=== PATIENT | female | born 1970 | race Caucasian/White ===

== ENCOUNTER → 2017-06-26 | Outpatient (CLI) | payer BC ==
[2017-06-26 12:18] LABS: ALT/SGPT 64 U/L (12-78); BLOOD UREA NITROGEN 13 mg/dl (7-18); BUN/CREATININE RATIO 17.4 (10-20); CALCIUM 9.4 mg/dl (8.5-10.1); CARBON DIOXIDE 30 mmol/L (21-32); CHLORIDE 104 mmol/L (98-107); CHOLESTEROL 207 mg/dl (0-200); CREATININE 0.76 mg/dl (0.60-1.20); GLUCOSE 101 mg/dl (70-99); POTASSIUM 4.2 mmol/L (3.5-5.1); SODIUM 137 mmol/L (136-145)
[2017-06-26 12:21] LABS: ALKALINE PHOSPHATASE 81 U/L (45-117); AST/SGOT 43 U/L (15-37); CHOLESTEROL/HDL RATIO 4.8; HDL CHOLESTEROL 43 mg/dl; LDL CHOLESTEROL CALCULATED 146 mg/dl; TRIGLYCERIDES 90 mg/dl (0-150); VERY LOW DENSITY LIPOPROT CALC 18 mg/dl
[2017-06-26 12:27] LABS: ESTIMATED AVERAGE GLUCOSE 114 mg/dl; HA1C FLAG Normal (Normal)
== END | disposition home or self-care (01) ==
LOC: C.LABPBG 09:36
PROVIDERS: ATTEND Family Medicine
DX: Z13.220 Encounter for screening for lipoid disorders (principal); R74.8 Abnormal levels of other serum enzymes; R73.03 Prediabetes

== ENCOUNTER 2023-08-06 22:54 | Inpatient (IN) ==
[2023-08-06] MEDS ORDERED: SODIUM CHLORIDE 0.9% 1,000 ML IV SCH (23:30)
--- NOTE | 2023-08-06 23:48 | Emergency Department Note ---
Impression & Plan Generalized weakness, GREGG (acute kidney injury) ED Provider Note HISTORY OF PRESENT ILLNESS: Patient is a 53-year-old female presenting with generalized weakness and lethargy. Family states that the patient was diagnosed with a urinary tract infection 2 days ago. She started on cefdinir. She reports has been taking her antibiotic. Today she reportedly has been very weak and unable to get up on her own. She reportedly has been incontinent of urine multiple times today. Family reports she is much more confused than her normal baseline. No reported falls or head injuries. Patient denies any chest pain, shortness of breath or abdominal pain. She had multiple episodes of vomiting yesterday and today. She reports she did take some Zofran at home. Denies any anticoagulation use. ROS: as above PHYSICAL EXAM: Constitutional: Patient appears in no acute distress. HENT: Head: Normocephalic and atraumatic. Eyes: EOMI, PERRL Mouth/Throat: Mucous membranes moist. Neck: Trachea midline. Neck supple. Cardiovascular: RRR, No murmurs, rubs or gallops. Intact distal pulses. Pulmonary/Chest: No respiratory distress. Breath sounds clear and equal bilaterally. No wheezes or rales. Abdominal: Abdomen soft, no tenderness, rebound or guarding. Musculoskeletal: No edema, tenderness or deformity noted. Skin: Warm and dry. No rash, erythema, pallor or cyanosis Psychiatric: Appropriate mood and affect for situation. Neurological: Alert and keenly responsive. CN II-XII grossly intact, moving all extremities equally and fully. MDM: - Vitals signs showed hypertension and tachypnea. - History obtained via patient's family, given patient's reported confusion. Patient presents with generalized weakness and lethargy. Family further reports that the patient has been too weak to get up and get around today. She is normally ambulatory without any assistive devices. Reports that the patient was diagnosed with a UTI 2 days ago. She has been taking cefdinir and using Zofran for nausea, but she has had multiple episodes of vomiting. She denies any abdominal pain, chest pain or shortness of breath. - Chronic conditions affecting care: HLD; HTN; DM-2 - Differential diagnoses include, but are not limited to: Urinary tract infection; pneumonia; CVA; intracranial hemorrhage; ACS - Order placed for continuous cardiac monitoring. At this time, monitor showed rate of 80 bpm with normal sinus rhythm, per my interpretation. - External medical records reviewed. ER documentation and results from 2 days ago were reviewed. Patient was treated with cefdinir for a urinary tract infection. - EKG reviewed by myself showed normal sinus rhythm. Rate 76 bpm. QTc 454. No acute ischemic changes. - Laboratory workup interpreted by myself showed normal WBC; stable electrol ytes; acute kidney injury (Cr 1.7 - baseline around 0.7); hyperglycemia (glucose 180); normal troponin - UA negative for infection - CXR negative for pneumonia, per my interpretation - CT head wo contrast negative for acute intracranial pathology. - Patient given 2L NS in ER. - Biofire negative. -Patient is too weak to get up and get around for an ambulatory challenge. Will admit to the hospitalist service. - Discussion was had with social work therapist about patient's case and need for admission - Hospitalist consulted for admission - Patient admitted to [facility] hospitalist service for further evaluation and management. ASSESSMENT AND PLAN: Diagnosis: generalized weakness; GREGG Plan: admit Past Med/Surg History Medical History Carpal tunnel syndrome, bilateral Dyslipidemia Elevated liver enzymes GERD (gastroesophageal reflux disease) HTN (hypertension) Kidney infection Trigger finger of right thumb Surgical History S/P carpal tunnel release (07/24/20) BOTH HANDS Status post section Family History Mother Diabetes Cirrhosis Father Diabetes Dyslipidemia Hypertension Grandfather (Paternal) Cancer Grandfather (Maternal) Cancer Denies family history of Ovarian cancer Prostate cancer Breast cancer Lung cancer Colorectal cancer Social History Smoking Status: Never smoker Tobacco Type: Cigarettes Age Started Using Tobacco: 23; Age Quit Using Tobacco: 31; Cigarettes Per Day: social smoker; Second Hand Exposure: No; Do You Dip or Chew Tobacco: No; Hx Alcohol Use: No Hx Substance Use: No Preferred Language: Bengali Communication Ability: Effective Visual Impairment: No Limitations Hearing Ability: Normal Central Sterile Technician Required: No Beliefs That Will Affect Care: None marital status: Current Living Situation: Spouse current occupational status: employed 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 Feels Safe at Home: Yes Childhood Exposure to Second-Hand Smoke: Yes Diet: regular Diet Comment: regular caffeine: Yes during the past year weight has: remained stable Dental Care, Regularly: Yes Physical Activity Frequency: Daily Physical Activity Frequency Comment: walking Seatbelt Use: always Sunscreen Use: No Allergies Allergies Allergy/AdvReac Type Severity Reaction Status Date / Time No Known Drug Allergies Allergy Verified 12/13/22 09:04 Home Meds Previous Rx's Medication Instructions Recorded furosemide 20 mg tablet 20 mg PO DAILY PRN Edema #30 tabs 10/25/21 betamethasone valerate 0.1 % lotion 1 applic topical BID PRN skin 12/13/22 irritation #60 mL cholecalciferol (vitamin D3) 1,250 50,000 unit PO .weekly 8 weeks #8 12/13/22 mcg (50,000 unit) capsule caps nystatin 100,000 unit/gram topical 1 applic topical TID PRN rash #30 12/13/22 cream grams nystatin 100,000 unit/gram topical 1 applic topical TID PRN rash #30 12/13/22 powder grams albuterol sulfate 90 mcg/actuation See Rx Instructions inhalation 01/06/23 aerosol inhaler (Ventolin HFA) .COMPLEX PRN shortness of breath or wheezing #18 grams doxycycline hyclate 100 mg tablet 100 mg PO BID 7 days #14 tabs 01/06/23 prednisone 20 mg tablet 40 mg PO DAILY 5 days #10 tabs 01/06/23 omeprazole 40 mg capsule,delayed 40 mg PO QPM #90 caps 04/19/23 release lisinopril 30 mg tablet 30 mg PO DAILY #30 tabs 06/13/23 metformin 500 mg tablet 500 mg PO .COMPLEX #60 tabs 06/13/23 pravastatin 10 mg tablet 10 mg PO HS #90 tabs 06/13/23 sertraline 50 mg tablet (Zoloft) See Rx Instructions PO DAILY #30 06/13/23 tabs cefdinir 300 mg capsule 300 mg PO BID 10 days #20 caps 08/04/23 Results & Data (ED) Vital Signs Vital Signs - 24 hr 08/06/23 23:05 08/06/23 23:05 08/06/23 23:08 Temperature 37.2 C Temperature Source Oral Pulse Rate 77 79 Pulse Rate from SpO2 Sensor Respiratory Rate 29 H Blood Pressure 151/82 H Blood Pressure Mean 105 Pulse Oximetry 93 Oxygen Delivery Method Room Air Room Air Sepsis Recent Fever Within 48 Hours No Sepsis New/Unexplained Change in Mental Status No Sepsis Action Taken by Nursing No Action Required 08/06/23 23:28 08/06/23 23:30 08/07/23 00:00 Temperature Temperature Source Pulse Rate 69 75 Pulse Rate from SpO2 Sensor 70 Respiratory Rate 31 H 32 H Blood Pressure 141/72 H 120/70 Blood Pressure Mean 95 86 Pulse Oximetry 95 94 Oxygen Delivery Method Sepsis Recent Fever Within 48 Hours Sepsis New/Unexplained Change in Mental Status Sepsis Action Taken by Nursing 08/07/23 00:30 Temperature Temperature Source Pulse Rate 73 Pulse Rate from SpO2 Sensor 73 Respiratory Rate 26 H Blood Pressure 131/76 Blood Pressure Mean 94 Pulse Oximetry 95 Oxygen Delivery Method Sepsis Recent Fever Within 48 Hours Sepsis New/Unexplained Change in Mental Status Sepsis Action Taken by Nursing Laboratory Data 08/06/23 23:25 08/06/23 23:25 Lab Results 08/06/23 08/06/23 08/06/23 Range/Units 23:25 23:25 23:25 WBC 9.08 (4.8-10.8) K/ul RBC 4.28 (4.20-5.40) M/uL Hgb 12.3 (12.0-16.0) g/dl Hct 37.5 (37.0-47.0) % MCV 87.6 (80.0-100.0) fL MCH 28.7 (25.0-34.0) pg MCHC 32.8 (32.0-36.0) g/dL RDW Std Deviation 49.1 H (36.4-46.3) fL RDW Coeff of Partha 15.3 H (11.5-14.5) % Plt Count 216 (130-400) K/uL MPV 10.0 (9.4-12.4) fL Immature Gran % (Auto) 0.7 % Neut % (Auto) 79.6 % Lymph % (Auto) 10.6 % [place] % (Auto) 7.9 % Eos % (Auto) 1.0 % Baso % (Auto) 0.2 % Neut # (Auto) 7.23 H (1.40-6.50) K/uL Lymph # (Auto) 0.96 L (1.20-3.40) K/uL [place] # (Auto) 0.72 H (0.11-0.59) K/uL Eos # (Auto) 0.09 (0.00-0.50) K/uL Baso # (Auto) 0.02 (0.00-0.20) K/uL Immature Gran # (Auto) 0.06 (0.01-0.20) K/uL Sodium 135 L (136-145) mmol/L Potassium 3.8 (3.5-5.1) mmol/L Chloride 105 (98-107) mmol/L Carbon Dioxide 23 (21-32) mmol/L Anion Gap 7 (3-11) BUN 34 H (6-23) mg/dl Creatinine 1.70 H (0.6-1.2) mg/dl Est Cr Clr Drug Dosing 52.9 ml/min Est GFR ( Amer) 39.5 ml/min Est GFR (Non-Af Amer) 34.1 ml/min BUN/Creatinine Ratio 20.0 (10-20) Glucose 180 H (70-99(Fasting)) mg/dl Lactate 1.0 (0.4-2.0) mmol/L Calcium 9.2 (8.6-10.3) mg/dl Magnesium 2.2 (1.7-2.4) mg/dl Total Bilirubin 0.5 (0.2-1.0) mg/dl AST 19 (13-39) U/L ALT 20 (7-52) U/L Alkaline Phosphatase 61 (34-104) U/L Troponin I High Sens 6.2 (0-14) pg/ml Total Protein 6.6 (6.0-8.3) gm/dl Albumin 3.7 (3.4-5.0) gm/dl Globulin 2.9 (2.5-4.0) gm/dl Albumin/Globulin Ratio 1.3 (0.9-2) TSH 2.389 (0.300-4.500) uIu/ml Urine Color Urine Appearance (Clear) Urine pH (4.5-7.5) Ur Specific [place] (1.000-1.030) Urine Protein (Negative) Urine Glucose (UA) (Negative) Urine Ketones (Negative) Urine Blood (Negative) Urine Nitrite (Negative) Urine Bilirubin (Negative) Urine Urobilinogen (Negative) Ur Leukocyte Esterase (Negative) Urine WBC (Auto) (0-5) /hpf Urine RBC (Auto) (0-4) /hpf U Hyaline Cast (Auto) (0-5) /lpf U Epithel Cells (Auto) (0-5) /lpf Urine Bacteria (Auto) (Negative) Adenovirus (PCR) (NotDetected) B. pertussis DNA (PCR) (NotDetected) B.parapertussis DNA PCR (NotDetected) C. pneumoniae DNA (PCR) (NotDetected) Coronavirus OC43 (PCR) (NotDetected) Coronavirus HKU1 (PCR) (NotDetected) Coronavirus 229E (PCR) (NotDetected) SARS-CoV-2 (PCR) (NotDetected) Coronavirus NL63 (PCR) (NotDetected) Human Metapneumovir PCR (NotDetected) Influenza Type A (PCR) (NotDetected) Influenza Type B (PCR) (NotDetected) M. pneumoniae (PCR) (NotDetected) Parainfluenza 1 (PCR) (NotDetected) Parainfluenza 2 (PCR) (NotDetected) Parainfluenza 3 (PCR) (NotDetected) Parainfluenza 4 (PCR) (NotDetected) RSV (PCR) (NotDetected) Entero/Rhino (PCR) (NotDetected) 08/06/23 08/06/23 Range/Units 23:25 23:30 WBC (4.8-10.8) K/ul RBC (4.20-5.40) M/uL Hgb (12.0-16.0) g/dl Hct (37.0-47.0) % MCV (80.0-100.0) fL MCH (25.0-34.0) pg MCHC (32.0-36.0) g/dL RDW Std Deviation (36.4-46.3) fL RDW Coeff of Partha (11.5-14.5) % Plt Count (130-400) K/uL MPV (9.4-12.4) fL Immature Gran % (Auto) % Neut % (Auto) % Lymph % (Auto) % [place] % (Auto) % Eos % (Auto) % Baso % (Auto) % Neut # (Auto) (1.40-6.50) K/uL Lymph # (Auto) (1.20-3.40) K/uL [place] # (Auto) (0.11-0.59) K/uL Eos # (Auto) (0.00-0.50) K/uL Baso # (Auto) (0.00-0.20) K/uL Immature Gran # (Auto) (0.01-0.20) K/uL Sodium (136-145) mmol/L Potassium (3.5-5.1) mmol/L Chloride (98-107) mmol/L Carbon Dioxide (21-32) mmol/L Anion Gap (3-11) BUN (6-23) mg/dl Creatinine (0.6-1.2) mg/dl Est Cr Clr Drug Dosing ml/min Est GFR ( Amer) ml/min Est GFR (Non-Af Amer) ml/min BUN/Creatinine Ratio (10-20) Glucose (70-99(Fasting)) mg/dl Lactate (0.4-2.0) mmol/L Calcium (8.6-10.3) mg/dl Magnesium (1.7-2.4) mg/dl Total Bilirubin (0.2-1.0) mg/dl AST (13-39) U/L ALT (7-52) U/L Alkaline Phosphatase (34-104) U/L Troponin I High Sens (0-14) pg/ml Total Protein (6.0-8.3) gm/dl Albumin (3.4-5.0) gm/dl Globulin (2.5-4.0) gm/dl Albumin/Globulin Ratio (0.9-2) TSH (0.300-4.500) uIu/ml Urine Color [place] Urine Appearance Clear (Clear) Urine pH 5.5 (4.5-7.5) Ur Specific [place] 1.015 (1.000-1.030) Urine Protein Trace H (Negative) Urine Glucose (UA) Negative (Negative) Urine Ketones Negative (Negative) Urine Blood 3+ H (Negative) Urine Nitrite Negative (Negative) Urine Bilirubin Negative (Negative) Urine Urobilinogen Negative (Negative) Ur Leukocyte Esterase Trace H (Negative) Urine WBC (Auto) 1-5 (0-5) /hpf Urine RBC (Auto) >30 H (0-4) /hpf U Hyaline Cast (Auto) 0 (0-5) /lpf U Epithel Cells (Auto) 0-5 (0-5) /lpf Urine Bacteria (Auto) Negative (Negative) Adenovirus (PCR) Not Detected (NotDetected) B. pertussis DNA (PCR) Not Detected (NotDetected) B.parapertussis DNA PCR Not Detected (NotDetected) C. pneumoniae DNA (PCR) Not Detected (NotDetected) Coronavirus OC43 (PCR) Not Detected (NotDetected) Coronavirus HKU1 (PCR) Not Detected (NotDetected) Coronavirus 229E (PCR) Not Detected (NotDetected) SARS-CoV-2 (PCR) Not Detected (NotDetected) Coronavirus NL63 (PCR) Not Detected (NotDetected) Human Metapneumovir PCR Not Detected (NotDetected) Influenza Type A (PCR) Not Detected (NotDetected) Influenza Type B (PCR) Not Detected (NotDetected) M. pneumoniae (PCR) Not Detected (NotDetected) Parainfluenza 1 (PCR) Not Detected (NotDetected) Parainfluenza 2 (PCR) Not Detected (NotDetected) Parainfluenza 3 (PCR) Not Detected (NotDetected) Parainfluenza 4 (PCR) Not Detected (NotDetected) RSV (PCR) Not Detected (NotDetected) Entero/Rhino (PCR) Not Detected (NotDetected) Administered Medications Sodium Chloride (Nss) 1,000 mls @ 999 mls/hr IV .Q1H1M ONE Stop: 08/07/23 01:18 Last Admin: 08/07/23 00:27 Dose: 999 mls/hr Documented By: EMB Imaging Data Radiologist's Impression: Head CT 08/06/23 23:46 Exam(s): CT HEAD Without Contrast EXAM: CT Head Without Intravenous Contrast CLINICAL HISTORY: Reason for exam: confusion. TECHNIQUE: Axial computed tomography images of the head/brain without intravenous contrast. Automated exposure control was utilized for the study. A dose lowering technique was utilized adhering to the principles of ALARA. COMPARISON: No relevant prior studies available. FINDINGS: Artifacts: Some motion artifact. Brain: Unremarkable. No hemorrhage. No significant white matter disease. No edema. Ventricles: Unremarkable. No ventriculomegaly. Bones/joints: Unremarkable. No acute fracture. Soft tissues: Unremarkable. Sinuses: Unremarkable as visualized. No acute sinusitis. Mastoid air cells: Unremarkable as visualized. No mastoid effusion. IMPRESSION: No acute findings in the head/brain. Electronically signed by: Maggie Douglas M.D. 08/07/23 01:05 AM Discharge Plan Visit Data Chief Complaint: Lethargic Stated Complaint: LETHARGIC ED Provider: Kimberli Hughes Discharge Problem: Generalized weakness, GREGG (acute kidney injury) Forms Stand Alone Forms: Wave - Private Location App [facility] [employer] Prescriptions Prescriptions: No Action cholecalciferol (vitamin D3) 1,250 mcg (50,000 unit) capsule 50,000 unit PO .weekly 56 Days Qty: 8 0RF omeprazole 40 mg capsule,delayed release(DR/EC) 40 mg PO QPM Qty: 90 1RF pravastatin 10 mg tablet 10 mg PO HS Qty: 90 1RF lisinopril 30 mg tablet 30 mg PO DAILY Qty: 30 2RF metformin 500 mg tablet 500 mg PO .COMPLEX Qty: 60 2RF Rx Instructions: 500 mg orally; 1 tablet daily x1 week, then increase to 1 tablet BID sertraline [Zoloft] 50 mg tablet See Rx Instructions PO DAILY Qty: 30 2RF Rx Instructions: orally daily; 1/2 tablet daily x6 days, then increase to 1 tablet daily nystatin 100,000 unit/gram cream 1 applic topical TID PRN (Reason: rash) Qty: 30 0RF nystatin 100,000 unit/gram powder 1 applic topical TID PRN (Reason: rash) Qty: 30 0RF betamethasone valerate 0.1 % lotion 1 applic topical BID PRN (Reason: skin irritation) Qty: 60 0RF furosemide 20 mg tablet 20 mg PO DAILY PRN (Reason: Edema) Qty: 30 5RF prednisone 20 mg tablet 40 mg PO DAILY 5 Days Qty: 10 0RF albuterol sulfate [Ventolin HFA] 90 mcg/actuation HFA aerosol inhaler See Rx Instructions inhalation .COMPLEX PRN (Reason: shortness of breath or wheezing) Qty: 18 0RF Rx Instructions: 1-2 puffs inhalation 1 puff INH every 4-6 hrs; PRN; doxycycline hyclate 100 mg tablet 100 mg PO BID 7 Days Qty: 14 0RF cefdinir 300 mg capsule 300 mg PO BID 10 Days Qty: 20 0RF Referrals Referrals: Ruthie Joe DO [Primary Care Provider] -
[2023-08-06 23:52] LABS: Appearance Urine Clear (Clear); Bacteria Urine Automated Negative (Negative); Bilirubin Urine Negative (Negative); Blood Urine 3+ (Negative); Cast Urine Automated 0 /lpf (0-5); Color Urine Orange; Epithelial Cell Urine Auto 0-5 /lpf (0-5); Glucose Urine UA Negative (Negative); Ketones Urine Negative (Negative); Leukocyte Esterase Urine Trace (Negative); Nitrite Urine Negative (Negative); Protein Urine Trace (Negative); RBC Urine Automated >30 /hpf (0-4); Specific Gravity Urine 1.015 (1.000-1.030); Urobilinogen Urine Negative (Negative); pH Urine 5.5 (4.5-7.5)
[2023-08-06 23:54] LABS: Basophils # (auto) 0.02 K/uL (0.00-0.20); Basophils % (auto) 0.2 %; Eosinophils # (auto) 0.09 K/uL (0.00-0.50); Hematocrit (blood only) 37.5 % (37.0-47.0); Hemoglobin 12.3 g/dl (12.0-16.0); Immature Granulocytes # (auto) 0.06 K/uL (0.01-0.20); Immature Granulocytes % (auto) 0.7 %; Lymphocytes # (auto) 0.96 K/uL (1.20-3.40); Lymphocytes % (auto) 10.6 %; Mean Corpuscular Hemoglobin 28.7 pg (25.0-34.0); Mean Corpuscular Hgb Conc 32.8 g/dL (32.0-36.0); Mean Corpuscular Volume 87.6 fL (80.0-100.0); Monocytes # (auto) 0.72 K/uL (0.11-0.59); Monocytes % (auto) 7.9 %; Neutrophils # (auto) 7.23 K/uL (1.40-6.50); Neutrophils % (auto) 79.6 %; Platelet Count 216 K/uL (130-400); RDW Coefficient of Variation 15.3 % (11.5-14.5); RDW Standard Deviation 49.1 fL (36.4-46.3); Red Blood Count 4.28 M/uL (4.20-5.40); White Blood Count 9.08 K/ul (4.8-10.8)
[2023-08-07 00:16] LABS: Albumin Globulin Ratio 1.3 (0.9-2); Albumin Level 3.7 gm/dl (3.4-5.0); Bilirubin,Total 0.5 mg/dl (0.2-1.0); Calcium 9.2 mg/dl (8.6-10.3); Creatinine Clr Calc Pharmacy 52.9 ml/min; Est GFR (African American) 39.5 ml/min; Est GFR (Non-African American) 34.1 ml/min; Globulin 2.9 gm/dl (2.5-4.0); Magnesium 2.2 mg/dl (1.7-2.4); Potassium 3.8 mmol/L (3.5-5.1); Total Protein 6.6 gm/dl (6.0-8.3); Troponin I High Sensitivity 6.2 pg/ml (0-14)
[2023-08-07] MEDS ORDERED: SODIUM CHLORIDE 0.9% 1,000 ML IV ONE (00:18)
[2023-08-07 00:33] LABS: Thyroid Stimulating Hormone 2.389 uIu/ml (0.300-4.500)
[2023-08-07 00:47] LABS: Adenovirus PCR Not Detected (NotDetected); Bordetella parapertussis PCR Not Detected (NotDetected); Bordetella pertussis PCR Not Detected (NotDetected); Chlamydia pneumoniae PCR Not Detected (NotDetected); Coronavirus 229E PCR Not Detected (NotDetected); Coronavirus CoV-2 (COVID19)PCR Not Detected (NotDetected); Coronavirus HKU1 PCR Not Detected (NotDetected); Coronavirus NL63 PCR Not Detected (NotDetected); Coronavirus OC43PCR Not Detected (NotDetected); Human Metapneumovirus PCR Not Detected (NotDetected); Influenza A PCR Not Detected (NotDetected); Influenza B PCR Not Detected (NotDetected); Mycoplasma pneumoniae PCR Not Detected (NotDetected); Parainfluenza Virus 1 PCR Not Detected (NotDetected); Parainfluenza Virus 2 PCR Not Detected (NotDetected); Parainfluenza Virus 3 PCR Not Detected (NotDetected); Parainfluenza Virus 4 PCR Not Detected (NotDetected); Respiratory Syncytial VirusPCR Not Detected (NotDetected); Rhinovirus/Enterovirus PCR Not Detected (NotDetected)
--- NOTE | 2023-08-07 01:06 | CT Scan Report ---
Exam(s): CT HEAD Without Contrast EXAM: CT Head Without Intravenous Contrast CLINICAL HISTORY: Reason for exam: confusion. TECHNIQUE: Axial computed tomography images of the head/brain without intravenous contrast. Automated exposure control was utilized for the study. A dose lowering technique was utilized adhering to the principles of ALARA. COMPARISON: No relevant prior studies available. FINDINGS: Artifacts: Some motion artifact. Brain: Unremarkable. No hemorrhage. No significant white matter disease. No edema. Ventricles: Unremarkable. No ventriculomegaly. Bones/joints: Unremarkable. No acute fracture. Soft tissues: Unremarkable. Sinuses: Unremarkable as visualized. No acute sinusitis. Mastoid air cells: Unremarkable as visualized. No mastoid effusion. IMPRESSION: No acute findings in the head/brain. Electronically signed by: Maggie Douglas M.D. 08/07/23 01:05 AM
--- NOTE | 2023-08-07 02:11 | History & Physical Report ---
Date of Service August 07, 2023 Assessment & Plan (1) Generalized weakness: Plan: 53yo female presents with several days of generalized weakness and fatigue, inability to ambulate. She was seen in the ER on 08/04/23 and thought to have a UTI - she was given a dose of IV Ceftriaxone and discharged home on Cefdinir. UA at that time likely reveals contamination rather than infection. Culture from 08/04 with mixed hanna. Weakness persists. Etiology unclear. Patient now with GREGG which is likely contributing to her weakness and fatigue as well. No obvious source of infection. No leukocytosis, lactate normal. TSH and electrolytes largely normal. -Admit to medical with telemetry -Follow cultures - blood and urine sent from ER -Check Lyme, Babesiosis and Anaplasmosis -Fall precautions -Will discontinue further antibiotics for now given negative urine culture (2) GREGG (acute kidney injury): Plan: Elevation of BUN and Cr at 34 and 1.7, respectively. Renal function previously normal with BUN of 14 and Cr of 0.67 on 08/04/23. Likely multifactorial - decreased oral intake with vomiting, medication effects - patient has been on Lisinopril and taking Advil. Possible AIN/ATN from Cephalosporins? UA at this time with hematuria, 3+ blood and >30RBCs. Mckeon catheter placed in the ER with gross hematuria with small clots present. Electrolytes and BMP otherwise acceptable. -Check urine Na and Cr for FeNA calculation -Check urine microscopy -Check CK total -Continue IVF resuscitation - LR at 125mL/hr x 2 additional liters -Strict I/Os -Avoid nephrotoxic agents - will hold Lisinopril -Renal dosing where needed (3) T2DM (type 2 diabetes mellitus): Plan: Chronic. Patient on Metformin. Last HgbA1C from 12/13/22=6.9 -Hold Metformin -ISS with goal inpatient blood sugar 110 - 140 -Check HgbA1C (4) Dyslipidemia: Plan: Chronic -Continue Pravastatin (5) HTN (hypertension): Plan: Chronic. Blood pressure acceptable at this time. -Hold Lisinopril -Monitor BP History of Present Illness Chief Complaint: lethargy and weakness Primary Care Provider: DO Анна Cliftonlyssa Harrison is a 53yo female presenting from home with three days of weakness and lethargy. Patient was seen in the ER on 08/04/23 with complaint of right ear pain as well as lethargy, difficulty ambulating and fever measured at 39.2. Also complaining of increased frequency of urination at that time. Patient was treated with IV fluids, Tylenol and Ceftriaxone for presumed UTI. She improved clinically while in the ER and was discharged home with a prescription for Cefdinir and Zofran PRN. Family reports that she has not been improving since returning home. She continues to be lethargic, generally weak with difficulty with ambulating. She is being carried to the bathroom by her family. She has been drinking fluids but not eating - has some nausea with vomiting as well. Has been taking Tylenol and Ibuprofen alternating for her symptoms. In the ER she is afebrile, HD stable Somnolent Witnessed snoring and brief apneic episode in the room ER Course: NSS x 2L Allergies Allergy/AdvReac Type Severity Reaction Status Date / Time No Known Drug Allergies Allergy Verified 12/13/22 09:04 Home Medications Medication Instructions Recorded Confirmed Type furosemide 20 mg tablet 20 mg PO DAILY PRN Edema #30 tabs 10/25/21 08/07/23 Rx betamethasone valerate 0.1 % lotion 1 applic topical BID PRN skin 12/13/22 12/13/22 Rx irritation #60 mL cholecalciferol (vitamin D3) 1,250 50,000 unit PO .weekly 8 weeks #8 12/13/22 08/07/23 Rx mcg (50,000 unit) capsule caps nystatin 100,000 unit/gram topical 1 applic topical TID PRN rash #30 12/13/22 12/13/22 Rx cream grams nystatin 100,000 unit/gram topical 1 applic topical TID PRN rash #30 12/13/22 12/13/22 Rx powder grams albuterol sulfate 90 mcg/actuation See Rx Instructions inhalation 01/06/23 01/06/23 Rx aerosol inhaler (Ventolin HFA) .COMPLEX PRN shortness of breath or wheezing #18 grams doxycycline hyclate 100 mg tablet 100 mg PO BID 7 days #14 tabs 01/06/23 01/06/23 Rx prednisone 20 mg tablet 40 mg PO DAILY 5 days #10 tabs 01/06/23 01/06/23 Rx omeprazole 40 mg capsule,delayed 40 mg PO QPM #90 caps 04/19/23 08/07/23 Rx release lisinopril 30 mg tablet 30 mg PO DAILY #30 tabs 06/13/23 08/07/23 Rx metformin 500 mg tablet 500 mg PO .COMPLEX #60 tabs 06/13/23 08/07/23 Rx pravastatin 10 mg tablet 10 mg PO HS #90 tabs 06/13/23 08/07/23 Rx sertraline 50 mg tablet (Zoloft) See Rx Instructions PO DAILY #30 06/13/23 08/07/23 Rx tabs cefdinir 300 mg capsule 300 mg PO BID 10 days #20 caps 08/04/23 08/07/23 Rx Past Med/Surg History Medical History Carpal tunnel syndrome, bilateral Dyslipidemia Elevated liver enzymes GERD (gastroesophageal reflux disease) HTN (hypertension) Kidney infection Trigger finger of right thumb Surgical History S/P carpal tunnel release (07/24/20) BOTH HANDS Status post section Family History Mother Diabetes Cirrhosis Father Diabetes Dyslipidemia Hypertension Grandfather (Paternal) Cancer Grandfather (Maternal) Cancer Denies family history of Ovarian cancer Prostate cancer Breast cancer Lung cancer Colorectal cancer Social History Smoking Status: Never smoker Tobacco Type: Cigarettes Age Started Using Tobacco: 23; Age Quit Using Tobacco: 31; Cigarettes Per Day: social smoker; Second Hand Exposure: No; Do You Dip or Chew Tobacco: No; Hx Alcohol Use: No Hx Substance Use: No Preferred Language: Albanian Communication Ability: Effective Visual Impairment: No Limitations Hearing Ability: Normal Corporate Learning Consultant Required: No Beliefs That Will Affect Care: None marital status: Current Living Situation: Spouse current occupational status: employed 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 Ill in appearance but non-toxic. Able to answer questions appropriately then returns to sleep Skin: warm, dry, intact, no rashes or lesions HEENT: NC/AT, PERRL, EOMI, anicteric sclera, conjunctiva without injection, external ear normal to inspection and nontender, right ear does not appear to be infected, nares patent, dry tongue and mucus membranes, dentition intact, no oropharyngeal lesions, neck supple, trachea midline, no LAD, no thyromegaly, no JVD Heart: +S1/S2, regular, no m/r/g Lungs: equal air entry bilaterally, no rales/rhonchi/wheezes Abd: +BS, soft, NT/ND, no masses/organomegaly/ascites Ext: warm, 2+ pulses in UE/LE bilaterally, no clubbing/cyanosis or edema Neuro: somnolent, arousable, no facial droop, MS 4/5 in UE/LE bilaterally, no drift, speech clear and appropriate Results & Data Results & Data Vital Signs (Past 12 Hours) Vital Signs Temp Pulse Resp BP Pulse Ox O2 Del Method 08/07/23 01:30 72 29 H 128/74 96 08/07/23 01:00 73 33 H 135/76 97 08/07/23 00:30 73 26 H 131/76 95 08/07/23 00:00 75 32 H 120/70 08/06/23 23:30 69 31 H 141/72 H 94 08/06/23 23:28 95 08/06/23 23:08 79 08/06/23 23:05 Room Air 08/06/23 23:05 37.2 C 77 29 H 151/82 H 93 Room Air Laboratory Results Laboratory Results WBC 9.08 K/ul (4.8-10.8) 08/06/23 23:25 RBC 4.28 M/uL (4.20-5.40) 08/06/23 23:25 Hgb 12.3 g/dl (12.0-16.0) 08/06/23 23:25 Hct 37.5 % (37.0-47.0) 08/06/23 23:25 MCV 87.6 fL (80.0-100.0) 08/06/23 23: MCH 28.7 pg (25.0-34.0) 08/06/23 23: MCHC 32.8 g/dL (32.0-36.0) 08/06/23 23: RDW Std Deviation 49.1 fL (36.4-46.3) H 08/06/23 23: RDW Coeff of Partha 15.3 % (11.5-14.5) H 08/06/23 23: Plt Count 216 K/uL (130-400) 08/06/23 23: MPV 10.0 fL (9.4-12.4) 08/06/23 23: Immature Gran % (Auto) 0.7 % 08/06/23: Neut % (Auto) 79.6 % 08/06/23 23: Lymph % (Auto) 10.6 % 08/06/23: [place] % (Auto) 7.9 % 08/06/23: Eos % (Auto) 1.0 % 08/06/23 23: Baso % (Auto) 0.2 % 08/06/23 23: Neut # (Auto) 7.23 K/uL (1.40-6.50) H 08/06/23 23:25 Lymph # (Auto) 0.96 K/uL (1.20-3.40) L 08/06/23 23:25 [place] # (Auto) 0.72 K/uL (0.11-0.59) H 08/06/23 23:25 Eos # (Auto) 0.09 K/uL (0.00-0.50) 08/06/23 23:25 Baso # (Auto) 0.02 K/uL (0.00-0.20) 08/06/23 23:25 Immature Gran # (Auto) 0.06 K/uL (0.01-0.20) 08/06/23 23:25 Sodium 135 mmol/L (136-145) L 08/06/23 23:25 Potassium 3.8 mmol/L (3.5-5.1) 08/06/23 23:25 Chloride 105 mmol/L (98-107) 08/06/23 23:25 Carbon Dioxide 23 mmol/L (21-32) 08/06/23 23:25 Anion Gap 7 (3-11) 08/06/23 23:25 BUN 34 mg/dl (6-23) H 08/06/23 23:25 Creatinine 1.70 mg/dl (0.6-1.2) H 08/06/23 23:25 Est Cr Clr Drug Dosing 52.9 ml/min 08/06/23 23:25 Est GFR ( Amer) 39.5 ml/min 08/06/23 23:25 Est GFR (Non-Af Amer) 34.1 ml/min 08/06/23 23:25 BUN/Creatinine Ratio 20.0 (10-20) 08/06/23 23:25 Glucose 180 mg/dl (70-99(Fasting)) H 08/06/23 23:25 Lactate 1.0 mmol/L (0.4-2.0) 08/06/23 23:25 Calcium 9.2 mg/dl (8.6-10.3) 08/06/23 23:25 Magnesium 2.2 mg/dl (1.7-2.4) 08/06/23 23:25 Total Bilirubin 0.5 mg/dl (0.2-1.0) 08/06/23 23:25 AST 19 U/L (13-39) 08/06/23 23:25 ALT 20 U/L (7-52) 08/06/23 23:25 Alkaline Phosphatase 61 U/L (34-104) 08/06/23 23:25 Troponin I High Sens 6.2 pg/ml (0-14) 08/06/23 23:25 Total Protein 6.6 gm/dl (6.0-8.3) 08/06/23 23:25 Albumin 3.7 gm/dl (3.4-5.0) 08/06/23 23:25 Globulin 2.9 gm/dl (2.5-4.0) 08/06/23 23:25 Albumin/Globulin Ratio 1.3 (0.9-2) 08/06/23 23:25 TSH 2.389 uIu/ml (0.300-4.500) 08/06/23 23:25 Urine Color [place] 08/06/23 23:25 Urine Appearance Clear (Clear) 08/06/23 23:25 Urine pH 5.5 (4.5-7.5) 08/06/23 23: Ur Specific [place] 1.015 (1.000-1.030) 08/06/23 23: Urine Protein Trace (Negative) H 08/06/23 23: Urine Glucose (UA) Negative (Negative) 08/06/23 23: Urine Ketones Negative (Negative) 08/06/23 23: Urine Blood 3+ (Negative) H 08/06/23 23: Urine Nitrite Negative (Negative) 08/06/23: Urine Bilirubin Negative (Negative) 08/06/23 23: Urine Urobilinogen Negative (Negative) 08/06/23 23: Ur Leukocyte Esterase Trace (Negative) H 08/06/23 23: Urine WBC (Auto) 1-5 /hpf (0-5) 08/06/23: Urine RBC (Auto) >30 /hpf (0-4) H 08/06/23: U Hyaline Cast (Auto) 0 /lpf (0-5) 08/06/23 23: U Epithel Cells (Auto) 0-5 /lpf (0-5) 08/06/23 23: Urine Bacteria (Auto) Negative (Negative) 08/06/23 23: Adenovirus (PCR) Not Detected (NotDetected) 08/06/23 23: B. pertussis DNA (PCR) Not Detected (NotDetected) 08/06/23 23:30 B.parapertussis DNA PCR Not Detected (NotDetected) 08/06/23 23:30 C. pneumoniae DNA (PCR) Not Detected (NotDetected) 08/06/23 23:30 Coronavirus OC43 (PCR) Not Detected (NotDetected) 08/06/23 23:30 Coronavirus HKU1 (PCR) Not Detected (NotDetected) 08/06/23 23:30 Coronavirus 229E (PCR) Not Detected (NotDetected) 08/06/23 23:30 SARS-CoV-2 (PCR) Not Detected (NotDetected) 08/06/23 23:30 Coronavirus NL63 (PCR) Not Detected (NotDetected) 08/06/23 23:30 Human Metapneumovir PCR Not Detected (NotDetected) 08/06/23 23:30 Influenza Type A (PCR) Not Detected (NotDetected) 08/06/23 23:30 Influenza Type B (PCR) Not Detected (NotDetected) 08/06/23 23:30 M. pneumoniae (PCR) Not Detected (NotDetected) 08/06/23 23:30 Parainfluenza 1 (PCR) Not Detected (NotDetected) 08/06/23 23:30 Parainfluenza 2 (PCR) Not Detected (NotDetected) 08/06/23 23:30 Parainfluenza 3 (PCR) Not Detected (NotDetected) 08/06/23 23:30 Parainfluenza 4 (PCR) Not Detected (NotDetected) 08/06/23 23:30 RSV (PCR) Not Detected (NotDetected) 08/06/23 23:30 Entero/Rhino (PCR) Not Detected (NotDetected) 08/06/23 23:[address] 08/06/23 23:46 Exam(s): CT HEAD Without Contrast EXAM: CT Head Without Intravenous Contrast CLINICAL HISTORY: Reason for exam: confusion. TECHNIQUE: Axial computed tomography images of the head/brain without intravenous contrast. Automated exposure control was utilized for the study. A dose lowering technique was utilized adhering to the principles of ALARA. COMPARISON: No relevant prior studies available. FINDINGS: Artifacts: Some motion artifact. Brain: Unremarkable. No hemorrhage. No significant white matter disease. No edema. Ventricles: Unremarkable. No ventriculomegaly. Bones/joints: Unremarkable. No acute fracture. Soft tissues: Unremarkable. Sinuses: Unremarkable as visualized. No acute sinusitis. Mastoid air cells: Unremarkable as visualized. No mastoid effusion. IMPRESSION: No acute findings in the head/brain. Electronically signed by: Maggie Douglas M.D. 08/07/23 01:05 AM Diagnostic Findings CXR - per my interpretation - poor inspiratory effort, non obvious effusion or edema, no consolidation ECG Additional Comments: EKG - per my intrepretation - study shows NSR at 76bpm, normal axis, LX=521, QRS=96. VRc=777. No acute ischemic changes or arrhythmia PG Care Time/CCT Total # of Minutes Spent Total Time Spent with Patient: Total time spent is greater than 50% in coordination of care (as documented) at patient's floor/unit and/or counseling patient: Coding Level of Care Code 88520 INT INP/OBS CARE MIN Diagnoses Generalized weakness R53.1 GREGG (acute kidney injury) N17.9 T2DM (type 2 diabetes mellitus) E11.9 Dyslipidemia E78.5 HTN (hypertension) I10
[2023-08-07] MEDS ORDERED: CARBOHYDRATES FOR HYPOGLYCEMIA PO PRN (04:15)
[2023-08-07] MEDS ORDERED: LACTATED RINGER'S 1,000 ML IV SCH (04:15)
[2023-08-07] MEDS ORDERED: GLUCOSE 10 TAB/TUBE PO PRN (04:15)
[2023-08-07] MEDS ORDERED: GLUCAGON FOR INJ 1 MG VIAL SQ PRN (04:15)
[2023-08-07] MEDS ORDERED: GLUCOSE 40% GEL 15 GM TUBE PO PRN (04:15)
[2023-08-07] MEDS ORDERED: ACETAMINOPHEN 325 MG TAB PO PRN (04:15)
[2023-08-07] MEDS ORDERED: ONDANSETRON INJ 2 MG/ML 2 ML VIAL IV PRN (04:15)
[2023-08-07] MEDS ORDERED: DEXTROSE 50% 50 ML SYRINGE IV PRN (04:15)
[2023-08-07 06:00] LABS: Creatinine Urine Random 117.7 mg/dl
[2023-08-07 06:12] LABS: Lyme Ab IgG w/WB Rflx Negative (Negative); Lyme Ab IgM w/WB Rflx Negative (Negative)
[2023-08-07 06:23] LABS: Hematocrit (blood only) 35.2 % (37.0-47.0); Hemoglobin 11.6 g/dl (12.0-16.0); Mean Corpuscular Hemoglobin 29.1 pg (25.0-34.0); Mean Corpuscular Volume 88.2 fL (80.0-100.0); Mean Platelet Volume 9.8 fL (9.4-12.4); Platelet Count 182 K/uL (130-400); RDW Coefficient of Variation 15.1 % (11.5-14.5); RDW Standard Deviation 49.1 fL (36.4-46.3); Red Blood Count 3.99 M/uL (4.20-5.40); White Blood Count 8.55 K/ul (4.8-10.8)
[2023-08-07 06:49] LABS: BUN Creatinine Ratio 25.2 (10-20); Blood Urea Nitrogen 30 mg/dl (6-23); Calcium 8.6 mg/dl (8.6-10.3); Carbon Dioxide 25 mmol/L (21-32); Chloride 106 mmol/L (98-107); Creatine Kinase 227 U/L (26-192); Creatinine Clr Calc Pharmacy 75.6 ml/min; Est GFR (African American) 60.8 ml/min; Est GFR (Non-African American) 52.4 ml/min; Glucose 141 mg/dl (70-99(Fasting))
[2023-08-07 07:20] LABS: Estimated Average Glucose 146 mg/dl; Hemoglobin A1C 6.7 % (4.5-5.6)
--- NOTE | 2023-08-07 07:23 | XRay Report ---
XR chest 1V portable CLINICAL HISTORY: weakness COMPARISON STUDY: Chest radiograph August 04, 2023. FINDINGS: Lung volumes are normal. Lungs are clear. There is no pneumothorax or pleural effusion. Car diac size is normal. Mediastinal contours are normal. There is no evidence for pulmonary edema. IMPRESSION: No acute cardiopulmonary findings. ACT 112: Negative or not required by law. Electronically signed by: Feliz Jurado M.D. 08/07/2023 7:21 AM
[2023-08-07 08:27] LABS: Potassium 3.9 mmol/L (3.5-5.1)
[2023-08-07] MEDS ORDERED: SERTRALINE HCL 50 MG TABLET PO SCH (09:00)
[2023-08-07] MEDS: INSULIN ASPART PER UNIT CHARGE SC SCH ×2 (09:17→12:35)
--- NOTE | 2023-08-07 10:58 | Hospitalist Progress Note ---
Date of Service August 07, 2023 Assessment & Plan (1) Generalized weakness: Plan: Severe progressive weakness with diplopia, likely respiratory failure, slurred speech, dysphagia, severe leg > arm weakness, distal worse than proximal in UE, difficult to assess LE reflexes but UE reflexes intact, paresthesias UE and LE, urinary retention, neck pain x weeks?, ORACIO symptoms longstanding -Stat abg may be in acute respiratory failure -npo, high aspiration risk -I am concerned for guillan-barre syndrome, differential diagnosis includes cervical spinal stenosis or cervical cord pathology, epidural abscess seems unlikely given lack of fever leukocytosis or sepsis, less likely myasthenia gravis based on symptoms and time course. Possibly all acute respiratory failure related to ORACIO/OHS however this does not explain the profound leg weakness -neurology consult, cspine MRI when safe to proceed -Follow cultures - blood and urine sent from ER -Lyme, Babesiosis and Anaplasmosis (2) GREGG (acute kidney injury): Plan: Elevation of BUN and Cr at 34 and 1.7, respectively. Renal function previously normal with BUN of 14 and Cr of 0.67 on 08/04/23. Likely multifactorial - decreased oral intake with vomiting, medication effects - patient has been on Lisinopril and taking Advil. Possible AIN/ATN from Cephalosporins? UA at this time with hematuria, 3+ blood and >30RBCs. Mckeon catheter placed in the ER with gross hematuria with small clots present. Electrolytes and BMP otherwise acceptable. -Check urine Na and Cr for FeNA calculation -Check urine microscopy -Check CK total -Continue IVF resuscitation - LR at 125mL/hr x 2 additional liters -Strict I/Os -Avoid nephrotoxic agents - will hold Lisinopril -Renal dosing where needed (3) T2DM (type 2 diabetes mellitus): Plan: Chronic. Patient on Metformin. Last HgbA1C from 12/13/22=6.9 -Hold Metformin -ISS with goal inpatient blood sugar 110 - 140 -Check HgbA1C (4) Dyslipidemia: Plan: Chronic -Continue Pravastatin (5) HTN (hypertension): Plan: Chronic. Blood pressure acceptable at this time. -Hold Lisinopril -Monitor BP Admission and Anticipated Discharge Date Admission Date: August 07, 2023 Results & Data Results & Data Vital Signs (Past 12 Hours) Vital Signs Temp Pulse Pulse Resp BP BP BP 08/07/23 07:30 36.5 C 58 L 16 120/73 08/07/23 07:00 36.7 C 85 18 129/84 08/07/23 07:30 08/07/23 06:53 88 08/07/23 04:21 77 24 128/74 08/07/23 01:30 72 29 H 128/74 08/07/23 01:00 73 33 H 135/76 08/07/23 00:30 73 26 H 131/76 08/07/23 00:00 75 32 H 120/70 08/06/23 23:30 69 31 H 141/72 H 08/06/23 23:28 08/06/23 23:08 79 08/06/23 23:05 08/06/23 23:05 37.2 C 77 29 H 151/82 H Pulse Ox O2 Del Method 08/07/23 07:30 99 Room Air 08/07/23 07:00 98 Room Air 08/07/23 07:30 Room Air 08/07/23 06:53 08/07/23 04:21 98 Room Air 08/07/23 01:30 96 08/07/23 01:00 97 08/07/23 00:30 95 08/07/23 00:00 08/06/23 23:30 94 08/06/23 23:28 95 08/06/23 23:08 08/06/23 23:05 Room Air 08/06/23 23:05 93 Room Air PG Care Time/CCT Total # of Minutes Spent Total Time Spent with Patient: Total time spent is greater than 50% in coordination of care (as documented) at patient's floor/unit and/or counseling patient: Coding Diagnoses Generalized weakness R53.1 GREGG (acute kidney injury) N17.9 T2DM (type 2 diabetes mellitus) E11.9 Dyslipidemia E78.5 HTN (hypertension) I10
[2023-08-07] MEDS ORDERED: D5W AND 1/2NSS + 20MEQ KCL 20 MEQ/1,000 ML BAG IV SCH (11:30)
[2023-08-07 12:25] LABS: iSTAT Arterial Blood Gas HCO3 24 meg/L (19-24); iSTAT Arterial Blood Gas pCO2 36 mmHg (35-46); iSTAT Arterial Blood Gas pH 7.44 (7.35-7.45); iSTAT Arterial Blood Gas pO2 68 mmHg (80-95); iSTAT Carbon Dioxide 25 mmol/L (24-31); iSTAT Hematocrit 31 % (37-47); iSTAT Hemoglobin 10.5 g/dl (12.0-16.0); iSTAT Potassium 3.9 mmol/L (3.3-5.0); iSTAT Sodium 138 mmol/L (135-144)
--- NOTE | 2023-08-07 14:52 | Critical Care Consultation ---
Date of Consultation August 07, 2023 Assessment & Plan (1) Generalized weakness: (2) Fever: (3) Pyelonephritis: Plan IMPRESSION: 53-year-old female presenting with generalized weakness, febrile illness, and concerns for impending respiratory failure. RECOMMENDATIONS: Was asked by hospitalist service to evaluate the patient for possible airway management with concerns of Republic Schneider syndrome. The patient has been extensively evaluated in the emergency department and subsequently during her admission. She has noted to have increasing generalized weakness and fatigue. I was briefly able to examine the patient while waiting for her to receive her MRI. She is able to communicate, but does appear slightly dyspneic. She is in no active respiratory distress. She did have a negative inspiratory force which was found to be -25, however test was repeated when we were at bedside, the patient provided little to no effort for the exam when instructed to perform. This appeared to be more related to her comprehension of the exam rather than the exam itself. Regardless, the patient is able to hold her head off the bed and move her upper extremities equally. She is not an impending respiratory failure at this time. I do not feel the patient warrants emergent intubation for transfer. Would agree, if concerns for possible given bradycardia, that the patient be evaluated at a tertiary center of excellence where she could undergo IVIG and other advanced therapies not available at this institution. This information was discussed with the hospitalist service as well as patient's at bedside. Patient to be transferred to [facility] where she has already been accepted. Thank you for allowing us to participate in the care of this patient. Supervising Physician Co-Signing Physician Notes Patient seen and examined. EMR reviewed. Discussed with admitting hospitalist as well as with critical care ASHWIN. Agree with assessment plan as noted. I evaluated and assessed the patient in the emergency room. I think her neph numbers are unreliable due to patient effort and her ability to follow commands. She is able to hold her head off the pillow and to shrug her shoulders against resistance. Patient does not demonstrate hypercarbia. On my exam, it is difficult to assess reflexes due to her morbid obesity. Neurology and the hospitalist are concerned about potential ascending demyelinating polyneuropathy and she has been accepted at an outside facility as we do not have plasmapheresis available. I do not think she requires intubation urgently as her symptoms have been going on for several days and again on my exam she appears to be stable currently. If the transport team feels uncomfortable transporting her, I would be happy to intubate the patient but at this point time I think she is stable for transport. Critical care services will sign off. Feel free to contact us with questions or concerns History of Present Illness Reason for Consultation: impending respiratory failure Requesting Physician: Dr. Ross Attending Physician: Payton Ross MD History of Present Illness Patient is a 53-year-old female with a significant past medical history of GERD, obesity, hypertension, dyslipidemia, cervical radiculopathy, type 2 diabetes, and recent diagnosis of pyelonephritis. Patient was seen in this institution with generalized weakness and dysuria. She was started on antibiotics and subsequently discharged home. Fortunately, her generalized weakness and lethargy persisted which prompted return visit to the hospital. Patient currently under the service of the [facility] hospitalist team. She is being evaluated for possible tickborne illnesses as well. Patient was noted to have altered mental status as well as generalized weakness and fatigue and concern for Guillain-Schneider. Patient has had no recent vaccinations. No recent upper respiratory illnesses or sick contacts. Other than the recent diagnosis of urinary tract infection, there is been no other diarrheal illnesses, etc. Upon evaluation in the emergency room, the patient is generally weak and fatigued appearing. She is able to answer questions appropriately, but is generally weak. Allergies Allergy/AdvReac Type Severity Reaction Status Date / Time No Known Drug Allergies Allergy Verified 12/13/22 09:04 Home Medications Medication Instructions Recorded Confirmed Type furosemide 20 mg tablet 20 mg PO DAILY PRN Edema #30 tabs 10/25/21 08/07/23 Rx betamethasone valerate 0.1 % lotion 1 applic topical BID PRN skin 12/13/22 12/13/22 Rx irritation #60 mL cholecalciferol (vitamin D3) 1,250 50,000 unit PO .weekly 8 weeks #8 12/13/22 08/07/23 Rx mcg (50,000 unit) capsule caps nystatin 100,000 unit/gram topical 1 applic topical TID PRN rash #30 12/13/22 12/13/22 Rx cream grams nystatin 100,000 unit/gram topical 1 applic topical TID PRN rash #30 12/13/22 12/13/22 Rx powder grams albuterol sulfate 90 mcg/actuation See Rx Instructions inhalation 01/06/23 01/06/23 Rx aerosol inhaler (Ventolin HFA) .COMPLEX PRN shortness of breath or wheezing #18 grams doxycycline hyclate 100 mg tablet 100 mg PO BID 7 days #14 tabs 01/06/23 01/06/23 Rx prednisone 20 mg tablet 40 mg PO DAILY 5 days #10 tabs 01/06/23 01/06/23 Rx omeprazole 40 mg capsule,delayed 40 mg PO QPM #90 caps 04/19/23 08/07/23 Rx release lisinopril 30 mg tablet 30 mg PO DAILY #30 tabs 06/13/23 08/07/23 Rx metformin 500 mg tablet 500 mg PO .COMPLEX #60 tabs 06/13/23 08/07/23 Rx pravastatin 10 mg tablet 10 mg PO HS #90 tabs 06/13/23 08/07/23 Rx sertraline 50 mg tablet (Zoloft) See Rx Instructions PO DAILY #30 06/13/23 08/07/23 Rx tabs cefdinir 300 mg capsule 300 mg PO BID 10 days #20 caps 08/04/23 08/07/23 Rx Patient History Medical History Carpal tunnel syndrome, bilateral Dyslipidemia Elevated liver enzymes GERD (gastroesophageal reflux disease) HTN (hypertension) Kidney infection Trigger finger of right thumb Surgical History S/P carpal tunnel release (07/24/20) BOTH HANDS Status post section Family History Mother Diabetes Cirrhosis Father Diabetes Dyslipidemia Hypertension Grandfather (Paternal) Cancer Grandfather (Maternal) Cancer Denies family history of Ovarian cancer Prostate cancer Breast cancer Lung cancer Colorectal cancer Social History Smoking Status: Never smoker Tobacco Type: Cigarettes Age Started Using Tobacco: 23; Age Quit Using Tobacco: 31; Cigarettes Per Day: social smoker; Second Hand Exposure: No; Do You Dip or Chew Tobacco: No; Hx Alcohol Use: No Hx Substance Use: No Preferred Language: Danish Communication Ability: Effective Visual Impairment: No Limitations Hearing Ability: Normal Venereal Disease Control Head Required: No Beliefs That Will Affect Care: None marital status: Current Living Situation: Family Current Living Situation Comment: with current occupational status: employed 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 All else were negative. Physical Exam Physical Exam: VITAL SIGNS - Vital signs and nursing notes were reviewed. GENERAL - 53-year-old female appearing her stated age who is weak appearing. Slightly tachypneic but not in significant distress. SKIN - Without rashes or lesions. NOSE - Midline and without cyanosis. No epistaxis or purulent drainage noted. MOUTH/OROPHARYNX - Without perioral cyanosis. NECK - Able to hold her head off the bed. LUNGS -slightly tachypneic. Able to perform physical exam including deep inspiratory and expiratory efforts. Auscultation reveals no wheezes, rales, or rhonchi. CARDIAC - RRR with S1/S2. No murmur, rubs, or gallops appreciated. ABDOMEN - Abdominal inspection demonstrates an obese abdomen. BS normoactive all four quadrants. No tenderness, palpable masses, or ascites noted. EXTREMITIES - Nail clubbing not present. No peripheral cyanosis. Moderate pretibial edema present. +3/5 radial palpated throughout. Patient able to hold both upper extremities off the bed for greater than 20 seconds at a time. She is able to lift her neck off the pillow. She can move her lower extremities and wiggle her toes. She has full sensation appreciated throughout. PSYCH - A&Ox3 and cooperates fully with examiner. Pt is very pleasant and interacts well with examiner. Results & Data Results & Data Vital Signs (Past 12 Hours) Vital Signs Temp Pulse Pulse Resp BP BP Pulse Ox 08/07/23 12:34 86 20 162/105 H 95 08/07/23 07:30 36.5 C 58 L 16 120/73 99 08/07/23 07:00 36.7 C 85 18 129/84 98 08/07/23 07:30 08/07/23 06:53 88 08/07/23 04:21 77 24 128/74 98 O2 Del Method 08/07/23 12:34 Room Air 08/07/23 07:30 Room Air 08/07/23 07:00 Room Air 08/07/23 07:30 Room Air 08/07/23 06:53 08/07/23 04:21 Room Air Coding Level of Care Code 59207 CRITICAL CARE 1ST 30-74M Diagnoses Generalized weakness R53.1 Fever R50.9 Fever type: unspecified Pyelonephritis N12 (2) Fever Fever type: unspecified Qualified Code(s): R50.9 - Fever, unspecified
[2023-08-07 14:53] LABS: C Reactive Protein 3.64 mg/dl (0-0.5)
--- NOTE | 2023-08-07 14:57 | Hospitalist Progress Note ---
Date of Service August 07, 2023 Assessment & Plan (1) Generalized weakness: Plan: Severe progressive weakness since Monday legs>arms, distal maybe worse than proximal, with bulbar symptoms of diplopia, dysarthria and dysphagia. Also extremity numness/dysesthesia urinary retention. and I am unable to elicit LE reflexes. UE reflexes were intact. This presentation is highly concerning for Guillan [place] Syndrome. Rapidly progressing and I am concerned for impending respiratory failure. -I am concerned for guillan-barre syndrome, differential diagnosis includes cervical spinal stenosis or cervical cord pathology, epidural abscess seems unlikely given lack of fever leukocytosis or sepsis, less likely myasthenia gravis based on symptoms and time course. -discussed with neurologist locally and recommended transfer, consulted auto repair technician -discussed with neurologist at [facility] Dr. Dowell and auto repair technician Dr. Turner - accepted in transfer to NICU -npo, high aspiration risk, follow NIF. One best trial at -25, subsequently worse but had trouble coordinating effort -evaluated by auto repair technician Dr. Gallagher immediately prior to transfer and he did not recommend intubation for transfer Possibly all acute respiratory failure related to ORACIO/OHS however this does not explain the profound leg weakness -neurology consult, cspine MRI when safe to proceed -Follow cultures - blood and urine sent from ER -Lyme, Babesiosis and Anaplasmosis were sent, seems unlikely (2) GREGG (acute kidney injury): Plan: Elevation of BUN and Cr at 34 and 1.7, respectively. -lisinopril held, improved with IV fluids, likely prerenal (3) T2DM (type 2 diabetes mellitus): Plan: Chronic. Patient on Metformin. Last HgbA1C from 12/13/22=6.9 -Hold Metformin -ISS with goal inpatient blood sugar 110 - 140 -Check HgbA1C (4) Dyslipidemia: Plan: Chronic -Continue Pravastatin (5) HTN (hypertension): Plan: Chronic. Blood pressure acceptable at this time. -Hold Lisinopril -Monitor BP Admission and Anticipated Discharge Date Admission Date: August 07, 2023 Subjective gave additional history - at bedside. [place] generally poorly last week. Monday started to have weakness, legs, but could walk with assist. Went to ED dx possible UTI given cephalosporin dc home. Monday AM very weak, could not longer walk. Progressively weaker since then came to ED evening of 08/06 last night. Workup unremarkable. Had urinary retention, suarez placed. She doesnt know last BM. Arms and especially legs have numbness and tingling. Sensation intact to fine touch face arms trunk and groin area, diminished but present on legs. Having double vision slurred speech 2-3 days. Nurses noted difficulty swallowing safely. Made NPO. Said to be confused but was not for me, just difficult to understand speech. Bilateral occipital neck pain for about a week but not severe. No trauma or falls. No recent UTI or gastroenteritis. No recent vaccinations. No recent med changes except abx as above. Physical Exam Physical Exam: Awake, ill appearing, very weak Large neck, some apneas, sleepy Lungs CTAB anteriorly but poor air movement, poor resp mechanics, tacypneic, appears labored CV reg no mrg no jvd Abd s nt nd obese LE warm wp no edema Neuro: awake but sleepy, answers questions appropriately oriented to ED and situation, dysarthric, EOMI but frequently dysconjugate then with effort can track, ricardo, can sustain upward gaze no lid lag, question of tongue fasciculations, coughed with swallowing liquids, shoulder shrug fairly strong and 3/5 at deltoids but significant distal UE weakness present 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 LE severely weak, 1-2/5 hip flexors, 0/5 at knee and ankle. UE reflexes intact. Unable to elicit patellar reflexes or ankle jerks, hampered by body habitus. No ankle clonus. No upgoing toes. Sensation intact to light touch face arms trunk and intact but diminished both legs. Results & Data Results & Data Vital Signs (Past 12 Hours) Vital Signs Temp Pulse Pulse Resp BP BP Pulse Ox 08/07/23 12:34 86 20 162/105 H 95 08/07/23 07:30 36.5 C 58 L 16 120/73 99 08/07/23 07:00 36.7 C 85 18 129/84 98 08/07/23 07:30 08/07/23 06:53 88 08/07/23 04:21 77 24 128/74 98 O2 Del Method 08/07/23 12:34 Room Air 08/07/23 07:30 Room Air 08/07/23 07:00 Room Air 08/07/23 07:30 Room Air 08/07/23 06:53 08/07/23 04:21 Room Air Diagnostic Findings CT head unremarkable. ESR 48 CRP P Viral PCR negative, flu/COVID/RSV negative abg 7.44 / 36 / 68 on room air CBC Results Results Complete Blood Count Results: RBC 3.99 M/uL (4.20-5.40) L 08/07/23 WBC 8.55 K/ul (4.8-10.8) 08/07/23 Hgb 11.6 g/dl (12.0-16.0) L 08/07/23 Hct 35.2 % (37.0-47.0) L 08/07/23 Plt Count 182 K/uL (130-400) 08/07/23 Chemistry Results CMP Results: Na 138 mmol/L (136-145) 08/07/23 K 3.9 mmol/L (3.5-5.1) 08/07/23 Cl 106 mmol/L (98-107) 08/07/23 CO2 25 mmol/L (21-32) 08/07/23 Anion Gap TNP 08/07/23 BUN 30 mg/dl (6-23) H 08/07/23 Creatinine 1.19 mg/dl (0.6-1.2) 08/07/23 Estimated GFR ( Amer) 60.8 ml/min 08/07/23 Estimated GFR (Non-Af Amer) 52.4 ml/min 08/07/23 BUN/Creatinine Ratio 25.2 (10-20) H 08/07/23 Glu 141 mg/dl (70-99(Fasting)) H 08/07/23 Ca 8.6 mg/dl (8.6-10.3) 08/07/23 Total Bilirubin 0.5 mg/dl (0.2-1.0) 08/06/23 Direct Bilirubin 0.1 mg/dl (0-0.2) 08/04/23 AST 19 U/L (13-39) 08/06/23 ALT 20 U/L (7-52) 08/06/23 Alkaline Phosphatase 61 U/L (34-104) 08/06/23 TP 6.6 gm/dl (6.0-8.3) 08/06/23 Albumin 3.7 gm/dl (3.4-5.0) 08/06/23 Globulin 2.9 gm/dl (2.5-4.0) 08/06/23 Albumin/Globulin Ratio 1.3 (0.9-2) 08/06/23 PG Care Time/CCT Total # of Minutes Spent Total Time Spent with Patient: Total time spent is greater than 50% in coordination of care (as documented) at patient's floor/unit and/or counseling patient: Critical Care Time: Yes 75 minutes critical care time Coding Level of Care Code 77474 SUB INP/OBS CARE 3/50MIN (25 - SIGNIFICANT, SEPARATELY IDENTIFIABLE ) Diagnoses Generalized weakness R53.1 GREGG (acute kidney injury) N17.9 T2DM (type 2 diabetes mellitus) E11.9 Dyslipidemia E78.5 HTN (hypertension) I10 Additional Codes Critical Care Time - Critical Care Time: Yes ([id number])
--- NOTE | 2023-08-07 17:18 | Discharge Summary ---
Date of Service August 07, 2023 Admission HPI Per Admitting Provider Myla Harrison is a 53yo female presenting from home with three days of weakness and lethargy. Patient was seen in the ER on 08/04/23 with complaint of right ear pain as well as lethargy, difficulty ambulating and fever measured at 39.2. Also complaining of increased frequency of urination at that time. Patient was treated with IV fluids, Tylenol and Ceftriaxone for presumed UTI. She improved clinically while in the ER and was discharged home with a prescription for Cefdinir and Zofran PRN. Family reports that she has not been improving since returning home. She continues to be lethargic, generally weak with difficulty with ambulating. She is being carried to the bathroom by her family. She has been drinking fluids but not eating - has some nausea with vomiting as well. Has been taking Tylenol and Ibuprofen alternating for her symptoms. 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 Discharge Exam Awake, ill appearing, very weak Large neck, some apneas, sleepy Lungs CTAB anteriorly but poor air movement, poor resp mechanics, tacypneic, appears labored CV reg no mrg no jvd Abd s nt nd obese LE warm wp no edema Neuro: awake but sleepy, answers questions appropriately oriented to ED and situation, dysarthric, EOMI but frequently dysconjugate then with effort can track, ricardo, can sustain upward gaze no lid lag, question of tongue fasciculations, coughed with swallowing liquids, shoulder shrug fairly strong and 3/5 at deltoids but significant distal UE weakness 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 LE severely weak, 1-2/5 hip flexors, 0/5 at knee and ankle. UE reflexes intact. Unable to elicit patellar reflexes or ankle jerks, hampered by body habitus. No ankle clonus. No upgoing toes. Sensation intact to light touch face arms trunk and intact but diminished both legs. Discharge Data Allergies Allergy/AdvReac Type Severity Reaction Status Date / Time No Known Drug Allergies Allergy Verified 12/13/22 09:04 Consultations 08/07/23 01:16 ED Decision to Admit Stat 08/07/23 11:25 Consult Neurology Stat 08/07/23 12:26 Consult Import Dispatcher Stat Ordered Studies 08/06/23 23:46 CT head/brain wo con Stat 08/08/23 07:30 IR lumbar puncture diagnostic Stat - CANCELLED, due to transfer Hospital Course (1) Generalized weakness: gave additional history - at bedside. [place] generally poorly last week. Monday started to have weakness, legs, but could walk with assist. Went to ED dx possible UTI given cephalosporin dc home. Monday AM very weak, could not longer walk. Progressively weaker since then came to ED evening of 08/06 last night. Workup unremarkable. Had urinary retention, suarez placed. She doesnt know last BM. Arms and especially legs have numbness and tingling. Sensation intact to fine touch face arms trunk and groin area, diminished but present on legs. Having double vision slurred speech 2-3 days. Nurses noted difficulty swallowing safely. Made NPO. Said to be confused but was not for me, just difficult to understand speech. Bilateral occipital neck pain for about a week but not severe. No trauma or falls. No recent UTI or gastroenteritis. No recent vaccinations. No recent med changes except abx as above. (1) Generalized weakness: Plan: Severe progressive weakness since Monday legs>arms, distal maybe worse than proximal, with bulbar symptoms of diplopia, dysarthria and dysphagia. Also extremity numness/dysesthesia urinary retention. and I am unable to elicit LE reflexes. UE reflexes were intact. This presentation is highly concerning for Guillan [place] Syndrome. Rapidly progressing and I am concerned for impending respiratory failure. -I am concerned for guillan-barre syndrome, differential diagnosis includes cervical spinal stenosis or cervical cord pathology, epidural abscess seems unlikely given lack of fever leukocytosis or sepsis, less likely myasthenia gravis based on symptoms and time course. -discussed with neurologist locally and recommended transfer, consulted warp drawer -discussed with neurologist at [facility] Dr. Dowell and warp drawer Dr. Turner - accepted in transfer to NICU -npo, high aspiration risk, follow NIF. One best trial at -25, subsequently worse but had trouble coordinating effort -evaluated by warp drawer Dr. Gallagher immediately prior to transfer, discussed with him at bedside, and he did not recommend intubation for transfer -LP, brain MRI planned but unable to be obtained prior to transfer -explained plan of care to Myla and her at bedside -Follow cultures - blood and urine sent from ER -Lyme, Babesiosis and Anaplasmosis were sent, seems unlikely -respiratory viral panel, RSV/COVID/flu negative (2) GREGG (acute kidney injury): Plan: Elevation of BUN and Cr at 34 and 1.7, respectively. -lisinopril held, improved with IV fluids, likely prerenal (3) T2DM (type 2 diabetes mellitus): Plan: PRN insulin (4) Dyslipidemia: Plan: Chronic -Continue Pravastatin (5) HTN (hypertension): Plan: Chronic. Blood pressure acceptable at this time. -Hold Lisinopril -Monitor BP (2) GREGG (acute kidney injury): (3) T2DM (type 2 diabetes mellitus): (4) Dyslipidemia: (5) HTN (hypertension): (6) Obesity: Total Time Total Time Spent Total Time Spent (In Minutes): see progress note for time documentation. Discharge Plan Discharge Items Reason For Visit: WEAKNESS, FATIGUE Follow-up/Referrals: Ruthie Joe DO [Primary Care Provider] - Medications and DC Order Prescriptions: No Action cholecalciferol (vitamin D3) 1,250 mcg (50,000 unit) capsule 50,000 unit PO .weekly 56 Days Qty: 8 0RF omeprazole 40 mg capsule,delayed release(DR/EC) 40 mg PO QPM Qty: 90 1RF pravastatin 10 mg tablet 10 mg PO HS Qty: 90 1RF lisinopril 30 mg tablet 30 mg PO DAILY Qty: 30 2RF metformin 500 mg tablet 500 mg PO .COMPLEX Qty: 60 2RF Rx Instructions: 500 mg orally; 1 tablet daily x1 week, then increase to 1 tablet BID sertraline [Zoloft] 50 mg tablet See Rx Instructions PO DAILY Qty: 30 2RF Rx Instructions: orally daily; 1/2 tablet daily x6 days, then increase to 1 tablet daily nystatin 100,000 unit/gram cream 1 applic topical TID PRN (Reason: rash) Qty: 30 0RF nystatin 100,000 unit/gram powder 1 applic topical TID PRN (Reason: rash) Qty: 30 0RF betamethasone valerate 0.1 % lotion 1 applic topical BID PRN (Reason: skin irritation) Qty: 60 0RF furosemide 20 mg tablet 20 mg PO DAILY PRN (Reason: Edema) Qty: 30 5RF prednisone 20 mg tablet 40 mg PO DAILY 5 Days Qty: 10 0RF albuterol sulfate [Ventolin HFA] 90 mcg/actuation HFA aerosol inhaler See Rx Instructions inhalation .COMPLEX PRN (Reason: shortness of breath or wheezing) Qty: 18 0RF Rx Instructions: 1-2 puffs inhalation 1 puff INH every 4-6 hrs; PRN; doxycycline hyclate 100 mg tablet 100 mg PO BID 7 Days Qty: 14 0RF cefdinir 300 mg capsule 300 mg PO BID 10 Days Qty: 20 0RF Krames/Other Patient Handouts: Exercise: Why Fitness Matters, Diabetes: Meal Planning, Type 2 Diabetes Admission Data Admit Date/Time: 08/07/23 01:56 Attending Provider: Payton Ross Admit Provider: Daphney Reilly Primary Care Provider: Ruthie Joe. Other Providers: Daphney Reilly ; Fareed Amador ; Pato Gallagher Coding Level of Care Code None Diagnoses Generalized weakness R53.1 GREGG (acute kidney injury) N17.9 T2DM (type 2 diabetes mellitus) E11.9 Dyslipidemia E78.5 HTN (hypertension) I10 Obesity E66.9
[2023-08-07] MEDS ORDERED: PRAVASTATIN SOD 10 MG TAB PO SCH (21:00)
[2023-08-08 10:19] LABS: A calco-baum cmplx NotReported Not Detected (NotDetected); Bact fragilis Not Reported Not Detected (NotDetected); C auris Not Reported Not Detected (NotDetected); Calbicans Not Reported Not Detected (NotDetected); Candida glabrata Not Reported Not Detected (NotDetected); Candida krusei Not Reported Not Detected (NotDetected); Cneoformans/gatti Not Reported Not Detected (NotDetected); Cparapsilosis Not Reported Not Detected (NotDetected); E cloacae compx Not Reported Not Detected (NotDetected); Efaecalis Not Reported Not Detected (NotDetected); Efaecium Not Reported Not Detected (NotDetected); Enterobacterales Not Reported Not Detected (NotDetected); Escherichia coli Not Reported Not Detected (NotDetected); H influenzae Not Reported Not Detected (NotDetected); K aerogenes Not Reported Not Detected (NotDetected); Koxytoca Not Reported Not Detected (NotDetected); Kpneumoniae grp Not Reported Not Detected (NotDetected); Lmonocyt Not Reported Not Detected (NotDetected); N meningitidis Not Reported Not Detected (NotDetected); P aeruginosa Not Reported Not Detected (NotDetected); Proteus spp Not Reported Not Detected (NotDetected); Salmonella spp Not Reported Not Detected (NotDetected); Smarcescens Not Reported Not Detected (NotDetected); Staph lugdunensis Not Reported Not Detected (NotDetected); Staph spp. Not Reported Not Detected (NotDetected); Staphaureus Not Reported Not Detected (NotDetected); Staphepi Not Reported Not Detected (NotDetected); Stenmaltophilia Not Reported Not Detected (NotDetected); Strep agal(GrpB) Not Reported Not Detected (NotDetected); Strep pneum Not Reported Not Detected (NotDetected); Strep pyog (GrpA) Not Reported Not Detected (NotDetected); Strep spp Not Reported Not Detected (NotDetected)
--- NOTE | 2023-08-09 05:41 | Electrocardiogram Report ---
Test Reason : Blood Pressure : / mmHG Vent. Rate : 076 BPM Atrial Rate : 076 BPM P-R Int : 148 ms QRS Dur : 096 ms QT Int : 404 ms P-R-T Axes : 010 026 007 degrees QTc Int : 454 ms Normal sinus rhythm Normal ECG When compared with ECG of 04-AUG-2023 19:06, Vent. rate has decreased BY 42 BPM Minimal criteria for Anterior infarct are no longer Present Confirmed by Adrien Ramirez ([id number] on 08/09/2023 5:40:36 AM Referred By: REFERRED SELF Confirmed By:Adrien Ramirez
[2023-08-09 22:59] LABS: Babesia microti DNA Not Detected (Not Detected)
== END 2023-08-07 16:00 | disposition short-term general hospital (02) | DRG 94 ==
LOC: ED 22:54 → EDINP 08-07 01:56 → SUATTDRO 08-07 01:56 → EDINP 08-07 15:15